=== PATIENT | female | born 1960 | race Caucasian/White ===

== ENCOUNTER → 2020-12-04 | Outpatient (CLI) | payer BC | LOC: EXRD 11-22 09:30 | DX: K76.0 Fatty (change of) liver, not elsewhere classified (principal) | CPT/HCPCS: 76700 ==

== ENCOUNTER → 2021-07-17 | Outpatient (CLI) | payer BC | LOC: EXRD 07-11 10:15 | DX: K75.81 Nonalcoholic steatohepatitis (NASH) (principal); R93.5 Abnormal findings on diagnostic imaging of other abdominal regions, including retroperitoneum | CPT/HCPCS: 76700 ==